=== PATIENT | male | born 1940 | race Caucasian/White ===

== ENCOUNTER 2016-12-15 17:16 | Emergency (ER) | payer MEDICARE, OTHER ==
[2016-12-15 17:32] VITALS: BP 152/89
--- NOTE | 2016-12-15 17:42 | EDM.PDOC ---
[id number] PIC LINE Time Seen by Provider: 12/15/16 17:35 Source of Information: Reports: Patient History Limitations: Reports: No limitations - History of Present Illness INITIAL COMMENTS - FREE TEXT/NARRATIVE: 76-year-old male who is receiving IV antibiotics at home to the PICC line was cleaning the PICC line today and the dressing caught the tubing and pulled it out 1 to 2 inches. He has no active bleeding. Onset: today - Related Data Allergies Allergy/AdvReac Type Severity Reaction Status Date / Time No Known Allergies Allergy Verified 11/13/16 13:07 Home Meds: Home Meds Aspirin [Adult Low Dose Aspirin EC] 81 mg PO BID 11/12/16 [History] Pantoprazole [Protonix] 40 mg PO DAILY 11/12/16 [History] Simvastatin [Zocor] 20 mg PO DAILY 11/12/16 [History] ED ROS GENERAL - Review of Systems Review Of Systems: See Below Constitutional: Denies: fever Respiratory: Denies: Shortness of Breath Cardiovascular: Denies: Chest pain Neurological: Denies: Headache ED EXAM, GENERAL - Physical Exam Exam: See Below Exam Limited By: No limitations General Appearance: alert, no apparent distress Respiratory/Chest: no respiratory distress Extremities: other (Exam is otherwise limited to the left arm. There is some extra tubing from the PICC line exposed but no inflammation or extravasation.) Course - Vital Signs Last Recorded V/S: Last Vital Signs Temp 96.5 F 12/15/16 17:45 Pulse 78 12/15/16 17:45 Resp 16 12/15/16 17:45 BP 152/89 H 12/15/16 17:45 Pulse Ox 98 12/15/16 17:45 - Re-Assessments/Exams Free Text/Narrative Re-Assessment/Exam: 12/15/16 17:40 After discussing the situation with the nurse loading rack supervisor who places PICC lines a regular basis, he was advised that it was just left in place and continued to be used. Patient will let us know if there is any problems. Departure - Departure Time of Disposition: 17:55 Disposition: Home, Self-Care 01 Condition: good Clinical Impression: Complication associated with peripherally inserted central catheter Qualifiers: Encounter type: initial encounter Qualified Code(s): T82.9XXA - Unspecified complication of cardiac and vascular prosthetic device, implant and graft, initial encounter Instructions: PICC Home Guide Referrals: Arvin Morris MD [Primary Care Provider] - Forms: ED Department Discharge Care Plan Goals: Continue using PICC line as recommended, and report any concerns or problems.
== END 2016-12-15 17:59 | disposition home or self-care (01) ==
LOC: JP.ED 17:16
DX: T82.9XXA Unspecified complication of cardiac and vascular prosthetic device, implant and graft, initial encounter (principal); Z79.82 Long term (current) use of aspirin; Z79.899 Other long term (current) drug therapy
CPT/HCPCS: 99282; 99283

== ENCOUNTER 2019-09-13 07:57 | Day surgery (SDC) | payer MEDICARE, OTHER ==
[2019-09-13] MEDS ORDERED: Sodium Chloride 0.9% 1,000 ML IV SCH (09:15)
[2019-09-13] MEDS ORDERED: fentaNYL 100 MCG/2 ML SDV ONE (09:41)
[2019-09-13] MEDS ORDERED: Propofol 200 MG/20 ML SDV ONE (09:41)
[2019-09-13] MEDS ORDERED: Midazolam 1 MG/ML 2 ML SDV ONE (09:41)
--- NOTE | 2019-09-13 11:27 | OR ---
DATE OF PROCEDURE: 09/13/2019 SURGEON: Noman Haque MD PROCEDURE: Colonoscopy. FINDINGS: Sigmoid colon polyp, approximately 5 mm, completely removed using hot snare loop. PREOPERATIVE DIAGNOSIS: Screening colonoscopy. POSTOPERATIVE DIAGNOSIS: Screening colonoscopy. RISKS: Risks, benefits, alternatives, and limitations including, but not limited to infection, bleeding, and perforation were explained to the patient, who wished to proceed. PROCEDURE IN DETAIL: The patient was placed in left lateral decubitus position. Digital rectal exam was performed without abnormality. The scope was introduced and advanced atraumatically to the ileocecal valve. A photo was taken. Scope was brought back through the ascending, transverse, descending colon, and retroflexed. No evidence of old or new blood. No masses. In the sigmoid colon, the aforementioned polyp was identified and completely removed. No abnormalities on retroflexion. The patient tolerated the procedure well. Noman Haque MD /[id number]
[2019-09-13 11:52] VITALS: BP 138/98; PULSE 70
== END 2019-09-13 11:30 | disposition home or self-care (01) ==
LOC: JP.SDS 07:57
PROVIDERS: ATTEND Surgery
DX: Z12.11 Encounter for screening for malignant neoplasm of colon (principal); K63.5 Polyp of colon
CPT/HCPCS: 88305; J2250; J2704; J3010; J7030

== ENCOUNTER 2019-11-28 06:20 | Emergency (ER) | payer MEDICARE, OTHER ==
[2019-11-28 06:36] VITALS: BP 137/75; PULSE 77
--- NOTE | 2019-11-28 07:14 | EDM.PDOC ---
ED HPI GENERAL MEDICAL PROBLEM - General Chief Complaint: Skin Complaint Stated Complaint: TICK BITE RIGHT LEG Time Seen by Provider: 11/28/19 06:59 Source of Information: Reports: Patient, RN Notes Reviewed History Limitations: Reports: No Limitations - History of Present Illness INITIAL COMMENTS - FREE TEXT/NARRATIVE: 79-year-old gentleman presents emergency department a complaint of deer tick bite with this occurred approximately 48 hours ago left lower leg he has no functional complaints no fevers Treatments RETAIL SALES CONSULTANT: Reports: Other (see below) Other Treatments RETAIL SALES CONSULTANT: none - Related Data Allergies Allergy/AdvReac Type Severity Reaction Status Date / Time No Known Allergies Allergy Verified 11/28/19 06:36 Home Meds: Home Meds Pantoprazole [Protonix] 40 mg PO DAILY 11/12/16 [History] Levothyroxine [Synthroid] 1 tab PO DAILY 09/10/19 [History] Pravastatin Sodium [Pravachol] 20 mg PO QPM 09/10/19 [History] Tamsulosin HCl [Flomax] 0.4 mg PO DAILY 11/28/19 [History] Past Medical History HEENT History: Reports: Impaired Vision Cardiovascular History: Reports: High Cholesterol Gastrointestinal History: Reports: Colon Polyp, GERD Musculoskeletal History: Reports: Arthritis Psychiatric History: Reports: Depression Endocrine/Metabolic History: Reports: Hypothyroidism Oncologic (Cancer) History: Reports: Prostate, Other (See Below) Other Oncologic History: radiation seeds implanted - Infectious Disease History Infectious Disease History: Reports: Mumps - Past Surgical History HEENT Surgical History: Reports: Cataract Surgery Cardiovascular Surgical History: Reports: None GI Surgical History: Reports: Colonoscopy Endocrine Surgical History: Reports: None Oncologic Surgical History: Reports: None Social & Family History - Tobacco Use Smoking Status *Q: Never Smoker Second Hand Smoke Exposure: No - Caffeine Use Caffeine Use: Reports: Coffee Caffeine Use Comment: 2 cups daily - Recreational Drug Use Recreational Drug Use: No ED ROS GENERAL - Review of Systems Review Of Systems: See Below Constitutional: Denies: Fever, Chills Respiratory: Reports: No Symptoms Cardiovascular: Reports: No Symptoms Skin: Reports: Wound ED EXAM, SKIN/RASH Exam: See Below Text/Narrative:: Examination of the left leg there is approximately a 1 cm wound on the calf this is explored with a #11 blade I do find some small remnants consistent with Ixodes scapularis Course - Vital Signs Last Recorded V/S: Last Vital Signs Temp 97.2 F 11/28/19 06:32 Pulse 77 11/28/19 06:32 Resp 14 11/28/19 06:32 BP 137/75 11/28/19 06:32 Pulse Ox 98 11/28/19 06:32 Departure - Departure Time of Disposition: 07:12 Disposition: Home, Self-Care 01 Condition: Fair Clinical Impression: Tick bite Qualifiers: Encounter type: initial encounter Qualified Code(s): W57.XXXA - Bitten or stung by nonvenomous insect and other nonvenomous arthropods, initial encounter - Discharge Information Instructions: Tick Bite Information, Adult Referrals: Arvin Morris MD [Primary Care Provider] - Additional Instructions: Take 200 mg doxycycline x1, please followup with your primary care provider in 7-10 days if not better, please call return to the emergency department with worsening of symptoms. Sepsis Event Note - Evaluation Sepsis Screening Result: No Definite Risk - Focused Exam Vital Signs: Vital Signs Temp Pulse Resp BP Pulse Ox 11/28/19 06:32 97.2 F 77 14 137/75 98 Date Exam was Performed: 11/28/19 Time Exam was Performed: 07:10 - Assessment/Plan Plan: Assessment Acuity = acute Site and laterality = deer tick bite Etiology = Ixodes scapularis Manifestations = none Location of injury = Home Lab values = none Plan Elect to treat empirically doxycycline 200 mg x 1 follow-up primary care in 7 to 10 days if no improvement This note was dictated using [employer] recognition software please call with any questions on syntax or grammar.
== END 2019-11-28 07:14 | disposition home or self-care (01) ==
LOC: JP.ED 06:20
DX: S80.862A Insect bite (nonvenomous), left lower leg, initial encounter (principal); E03.9 Hypothyroidism, unspecified; F32.9 Major depressive disorder, single episode, unspecified; K21.9 Gastro-esophageal reflux disease without esophagitis; Z79.899 Other long term (current) drug therapy; W57.XXXA Bitten or stung by nonvenomous insect and other nonvenomous arthropods, initial encounter
CPT/HCPCS: 99282; 99283